=== PATIENT | female | born 1980 | race Asian ===

== ENCOUNTER 2024-05-04 08:07 | Inpatient (IN) ==
[2024-05-04] MEDS ORDERED: ACETAMINOPHEN 500 MG TAB PO PRN (08:20)
[2024-05-04] MEDS ORDERED: LIDOCAINE 1% LOCAL 20 ML VIAL INFIL PRN (08:20)
[2024-05-04] MEDS ORDERED: OXYTOCIN 30 UNITS/NSS 30 UNITS/500 ML BAG IV PRN ×2 (08:20→14:38)
[2024-05-04] MEDS ORDERED: CALCIUM CARBONATE 500 MG CHEWABLE TAB PO PRN (08:20)
[2024-05-04 08:57] LABS: Hematocrit (blood only) 33.2 % (37.0-47.0); Hemoglobin 11.6 g/dl (12.0-16.0); Mean Corpuscular Hemoglobin 29.3 pg (25.0-34.0); Mean Corpuscular Hgb Conc 34.9 g/dL (32.0-36.0); Mean Corpuscular Volume 83.8 fL (80.0-100.0); Mean Platelet Volume 10.6 fL (9.4-12.4); Platelet Count 284 K/uL (130-400); RDW Coefficient of Variation 13.1 % (11.5-14.5); RDW Standard Deviation 39.8 fL (36.4-46.3); Red Blood Count 3.96 M/uL (4.20-5.40); White Blood Count 8.56 K/ul (4.8-10.8)
--- NOTE | 2024-05-04 09:14 | History & Physical Report ---
Date of Service May 04, 2024 Assessment & Plan (1) Supervision of elderly multigravida: (2) Encounter for induction of labor: Plan Ruth is a 43-year-old G4, P2 currently at 40 weeks 0 days gestational age presents for induction of labor secondary to AMA greater than age 40.\ 1. Fetus: Category 1 tracing 2. Labor: Cervix very favorable. Will start oxytocin per regular protocol plan for rupture of membranes when appropriate. 3. GBS negative 4. Vitals within normal limits 5. Diet-controlled gestational diabetes: Plan for initial glucose and if normal no additional follow-up needed Admission and Anticipated Discharge Date Admission Date: May 04, 2024 History of Present Illness Primary Care Provider: NO PCP Ruth is a 43-year-old G4, P2 presents for induction of labor secondary to AMA over age 40. Denying painful contractions, leakage of fluid or vaginal bleeding. Normal movement noted. complications: AMA>40@del *Anatomy Scan @ 20wks * Echo 22-24wks 02/23/[address] [facility] [place]---normal *Growth scan @32wks *Weekly NST's @36 wks *Twice weekly NST @38wks *Weekly KRISTINE's @38wks *Deliver by 40 wks-----IOL 05/04 GDM in prior *Begin monthly Growth US's @24wks Will need custodial worker for some visits. Head Circumferance < 2% on F/U Anatomy - Resolved at 32 weeks *MFM conult (02/17/[address] [facility] [place]) *head circumference only -1 sd below normal so no microcephaly *MFM recs continued monthly growth US and weekly NSTs/DVP at 32 weeks -HC 12% at 34wks Allergies Allergy/AdvReac Type Severity Reaction Status Date / Time No Known Allergies Allergy Verified 05/03/24 11:02 Home Medications Medication Instructions Recorded Confirmed Type vit no.95-ferrous 1 tab PO DAILY 02/23/23 05/03/24 History fumarate 28 mg-folic acid 800 mcg tablet () acetone (urine) test (Ketone Urine #50 ea 10/15/23 05/03/24 Rx Test strips) blood sugar diagnostic (OneTouch #150 ea 10/15/23 05/03/24 Rx Verio test strips) blood-glucose meter (OneTouch #1 ea 10/15/23 05/03/24 Rx Verio Reflect Meter) lancets 33 gauge (OneTouch Delica #150 ea 10/15/23 05/03/24 Rx Plus Lancet) Patient History Medical History (Updated 05/04/24 @ 09:14 by Shaka Guzman MD) SAB (spontaneous ) Surgical History (Updated 02/25/23 @ 11:52 by Cindy Maher MD, FACOG) History of dental surgery Family History (Updated 10/01/23 @ 10:42 by Karen Dean) Other Diabetes Denies family history of Ovarian cancer Prostate cancer Breast cancer Colorectal cancer Social History (Updated 10/01/23 @ 10:43 by Karen Dean) Smoking Status: Never smoker Do You Dip or Chew Tobacco: No; Hx Alcohol Use: No Hx Substance Use: No Preferred Language: Bahamian marital status: marital status details: Rayray (42) [phone] Current Living Situation: Spouse Current Living Situation Comment: Lives with spouse, 2 children, 2 guinnea pigs current occupational status: unemployed Feels Safe at Home: Yes Physical Exam Genitourinary: OB Exam Abdomen: + vertex (Sutures clearly palpated) Manual OB Exam: + cervical dilation 4 cm, + cervical effacement 50% and + station -2 OB Exam Monitor Tracing: + external FHT monitor used, + external uterine monitor used, + category I and + normal FHT variability; no early decelerations present, no late decelerations present and no variable decelerations Results & Data Vital Signs (Past 12 Hours) Vital Signs Pulse BP 05/04/24 08:22 78 111/76 Coding Level of Care Code None Diagnoses Encounter for supervision of multigravida of advanced maternal age in third trimester O09.523 Trimester: third trimester Encounter for induction of labor Z34.90 (1) Supervision of elderly multigravida Trimester: third trimester Qualified Code(s): O09.523 - Supervision of elderly multigravida, third trimester
[2024-05-04] MEDS: LACTATED RINGER'S 1,000 ML IV SCH (09:57)
[2024-05-04] MEDS: OXYTOCIN 30 UNITS/NSS 30 UNITS/500 ML BAG IV PRN (09:57)
--- NOTE | 2024-05-04 12:32 | Labor Progress Brief Note ---
Date of Service May 04, 2024 Subjective Reason For Note: Routine Evaluation Assessment & Plan (1) Supervision of elderly multigravida: Trimester: third trimester Qualified Code(s): O09.523 - Supervision of elderly multigravida, third trimester (2) Encounter for induction of labor: Plan Ruth is a 43-year-old G4, P2 currently at 40 weeks 0 days gestational age presents for induction of labor secondary to AMA greater than age 40.\ 1. Fetus: Category 1 tracing 2. Labor: Cervix very favorable. Continue oxytocin per regular protocol. Me mbranes ruptured for clear. 3. GBS negative 4. Vitals within normal limits 5. Diet-controlled gestational diabetes: Plan for initial glucose and if normal no additional follow-up needed Admission and Anticipated Discharge Date Admission Date: May 04, 2024 Physical Exam Genitourinary: OB Exam Abdomen: + vertex (Sutures clearly palpated) Manual OB Exam: + cervical dilation 4 cm, + cervical effacement 50%, + station -2 and + amniotic fluid clear OB Exam Monitor Tracing: + external FHT monitor used, + external uterine monitor used, + category I and + normal FHT variability; no early decelerations present, no late decelerations present and no variable decelerations Results & Data Vital Signs (Past 12 Hours) Vital Signs Temp Pulse Resp BP 05/04/24 12:23 76 05/04/24 12:23 113/75 05/04/24 11:29 70 05/04/24 11:29 114/77 05/04/24 10:01 71 05/04/24 10:01 108/76 05/04/24 08:52 36.9 C 20 05/04/24 08:22 78 111/76 Coding Level of Care Code None Diagnoses Encounter for supervision of multigravida of advanced maternal age in third trimester O09.523 Trimester: third trimester Encounter for induction of labor Z34.90
--- NOTE | 2024-05-04 13:50 | Anesthesiology Consultation ---
Date of Service May 04, 2024 Assessment & Plan Chart Review Chart Review: Patient NOT seen in Pre Admission Testing and Acceptable Risk for Labor Epidural Consults Requested none ASA ASA2 Proposed Anesthesia Anesthesia Type: Labor Epidural Risk / Benefits Reviewed With: PT / POA / Parent / Guardian, Accepts Plan and Informed Consent Obtained History Height/Weight Height: 5 ft 5.35 in Weight: 75.75 kg Allergies Allergy/AdvReac Type Severity Reaction Status Date / Time No Known Allergies Allergy Verified 05/04/24 09:17 Medications Home Medications Medication Instructions Recorded Confirmed Last Taken vit no.95-ferrous 1 tab PO DAILY 02/23/23 05/04/24 04/19/24 fumarate 28 mg-folic acid 800 mcg tablet () acetone (urine) test (Ketone Urine #50 ea 10/15/23 05/03/24 Unknown Test strips) blood sugar diagnostic (OneTouch #150 ea 10/15/23 05/03/24 Unknown Verio test strips) blood-glucose meter (OneTouch #1 ea 10/15/23 05/03/24 Unknown Verio Reflect Meter) lancets 33 gauge (OneTouch Delica #150 ea 10/15/23 05/03/24 Unknown Plus Lancet) Active Medications Generic Name Dose Route Start Last Admin Trade Name Freq PRN Reason Stop Dose Admin Oxytocin 30 units in 500 mls @ 6 mls/hr 05/04/24 08:23 05/04/24 11:00 Pitocin 30 Units/Nss IV 05/06/24 08:22 0.36 units/hr .Q24H PRN 6 mls/hr Labor Induction/Augmentation Titration Protocol 0.36 UNITS/HR Lactated Ringer's 1,000 mls @ 50 mls/hr 05/04/24 10:00 05/04/24 13:25 Lr IV 05/05/24 09:59 999 mls/hr .Q20H SONAM Infusion NPO Date Last Intake of Fluids: 05/04/24 Time Last Intake of Fluids: 09:00 Date Last Intake of Solids: 05/04/24 Time Last Intake of Solids: 07:30 Past Medical History Medical History SAB (spontaneous ) Exercise / Class Metabolic Activity 1 > 8 Run/Swim/Ski/Tennis Past Family History Family History Other Diabetes Denies family history of Ovarian cancer Prostate cancer Breast cancer Colorectal cancer Past Surgical History Surgical History History of dental surgery Past Anesthesia History No Hx of Anesthesia Complications and No Family Hx of Anesthesia Complications History of PONV No Hx of PONV and No Hx of Motion Sickness Social History Smoking Status: Never smoker Do You Dip or Chew Tobacco: No Hx Alcohol Use: No Hx Substance Use: No Review of Systems ROS Unobtainable: All systems reviewed & are unremarkable except as noted in HPI & below Physical Exam Vital Signs Last Vital Signs Temp 36.9 C 05/04/24 08:52 Pulse 75 05/04/24 13:41 Resp 20 05/04/24 08:52 BP 124/84 05/04/24 13:30 Pulse Ox 99 05/04/24 13:41 ENMT Mouth: no TMJ abnormality Thyromental Distance: > or= 3.5 Finger Breadths Mallampati Class: II Neck normal visual inspection and trachea midline; neck extension not limited Respiratory normal respiratory effort Auscultation: lungs clear to auscultation bilaterally Cardiovascular Rate/Rhythm: regular rate and regular rhythm Heart Sounds: no murmur Musculoskeletal Spine: normal cervical ROM Extremities: full ROM of extremities Neurologic moves all extremities Psychiatric Orientation: alert and oriented x 3 Testing Laboratory Results 05/04/24 08:32
[2024-05-04] MEDS: fentANYL 2 MCG/ML BUPIVacaine 0.125%-NSS 100ML BAG ONE (14:06)
[2024-05-04] MEDS ORDERED: ROPIVACAINE 0.5% PF 5 MG/ML 20 ML VIAL EPI PRN (14:08)
[2024-05-04] MEDS ORDERED: LIDOCAINE 2% MPF LOCAL 5 ML VIAL EPI PRN (14:08)
[2024-05-04] MEDS ORDERED: ePHEDrine sulfate 50 MG/ML AMP IV PRN (14:08)
[2024-05-04] MEDS ORDERED: BUPIVACAINE 0.25% PF 30 ML VIAL EPI PRN (14:08)
[2024-05-04] MEDS ORDERED: SODIUM CHLORIDE 0.9% PF INJ 10 ML VIAL EPI PRN (14:08)
[2024-05-04] MEDS ORDERED: NALOXONE HCL 0.4 MG/1 ML VIAL/CARP IV PRN (14:08)
[2024-05-04] MEDS ORDERED: fentaNYL citrate PF 100 MCG/2 ML VIAL EPI PRN (14:08)
[2024-05-04] MEDS ORDERED: NALBUPHINE HCL INJ 10 MG/ML AMP IV PRN (14:08)
[2024-05-04] MEDS ORDERED: diphenhydrAMINE 50 MG/ML VIAL IV PRN (14:08)
[2024-05-04] MEDS ORDERED: NALOXONE HCL 1 MG in SODIUM CHLORIDE 0.9% 1,000 ML IV PRN (14:08)
[2024-05-04] MEDS ORDERED: fentANYL 2 MCG/ML BUPIVacaine 0.125%-NSS 100ML BAG EPI PRN (14:08)
[2024-05-04] MEDS: BUPIVACAINE 0.25% PF 30 ML VIAL ONE (14:11)
[2024-05-04] MEDS: fentaNYL citrate PF 100 MCG/2 ML VIAL ONE (14:11)
[2024-05-04] MEDS: LIDOCAINE 2%/EPINEPHRINE 1:200,000 20 ML PF ONE (14:11)
[2024-05-04] MEDS ORDERED: ACETAMINOPHEN 325 MG TAB PO PRN (14:38)
[2024-05-04] MEDS ORDERED: BENZOCAINE 20% SPRY 85 APPLN/85 GM CAN EXT PRN (14:38)
[2024-05-04] MEDS ORDERED: bisacodyL 10 MG SUPP PR PRN (14:38)
[2024-05-04] MEDS ORDERED: HYDROCORTISONE ACETATE 25 MG SUPP PR PRN (14:38)
--- NOTE | 2024-05-04 14:59 | Anesthesia Procedure Note ---
Date of Service May 04, 2024 Anesthesia Post Epidural Note Vital Signs Vital Signs: Temp Pulse Resp BP Pulse Ox 36.9 C 64 20 113/65 98 05/04/24 08:52 05/04/24 14:51 05/04/24 14:50 05/04/24 14:51 05/04/24 14:31 Notes Mental Status: alert / awake / arousable and participated in evaluation Nausea / Vomiting: adequately controlled Pain: adequately controlled Airway Patency, RR, SpO2: stable & adequate BP & HR: stable & adequate Hydration State: stable & adequate Neuraxial Anesthesia: was administered and sensory block is resolving Anesthetic Complications: no major complications apparent Epidural: Removed without complications and With tip intact
[2024-05-04] MEDS: SODIUM CHLORIDE 0.9% PF INJ 10 ML VIAL ONE (15:05)
[2024-05-04] MEDS: ePHEDrine sulfate 50 MG/ML AMP ONE (15:05)
[2024-05-04] MEDS: fentaNYL citrate PF 100 MCG/2 ML VIAL EPI STA (15:09)
[2024-05-04] MEDS: DIPHTHER/TETAN/PERTUS Vaccine (Tdap, Adol/Adult) 0.5mL IM ONE (15:09)
[2024-05-04] MEDS: LIDOCAINE 2%/EPINEPHRINE 1:200,000 20 ML PF EPI STA (15:09)
[2024-05-04] MEDS: SODIUM CHLORIDE 0.9% PF INJ 10 ML VIAL EPI STA (15:09)
[2024-05-04] MEDS: BUPIVACAINE 0.25% PF 30 ML VIAL EPI STA (15:09)
--- NOTE | 2024-05-04 16:43 | Delivery Summary ---
Vaginal Delivery Summary Date of Service May 04, 2024 Vaginal Delivery Summary and 2nd Degree LAC Progressed to 10 cm dilated 100% effaced +2 station pushed over intact perineum with epidural anesthesia and delivered a viable female with weight and Apgars pending. Head delivered without difficulty quickly followed by shoulders and remainder of body. was noted to be vigorous soon after delivery and a 1 minute delayed cord clamping was initiated. Cord is then double clamped and cut and remained on maternal abdomen. Cord blood obtained. Attention turned to deliver the placenta delivered intact with three-vessel cord gentle cord traction. Inspection of perineum vagina cervix there is noted a second- degree perineal laceration which was repaired and 3-0 Vicryl with traditional crown stitch. Needle sponge and instrument counts are correct at the completion of the case. Both mother and stable in the immediate post delivery timeframe. No complications noted and blood loss per QBL in chart [facility] Vaginal Delivery Charge Delivery Type Details: and 2nd Degree LAC
[2024-05-04] MEDS: DOCUSATE SODIUM 100 MG CAP PO SCH (20:43)
--- NOTE | 2024-05-05 06:38 | Obstetrical Progress Note ---
Date of Service <Elías LadyRenan Singh DO - Last Filed: 05/05/24 07:48> May 05, 2024 Assessment & Plan <Elías NarayananRenan Singh DO - Last Filed: 05/05/24 07:48> (1) state: Patient is a 43yo day 1 s/p complicated by 2nd degree perineal laceration. Feeling well this AM, VSS Continue care Ambulation and as tolerated Pain control Hgb: 11.6 on 05/04, asymptomatic Home: tomorrow Follow up with Dr. Guzman in 6wks. (2) Perineal laceration during delivery: Second-degree perineal laceration which was repaired and 3-0 Vicryl with traditional crown stitch. Monitor for signs of infection Pain control as needed Perineal laceration degree: second degree Qualified Code(s): O70.1 - Second degree perineal laceration during delivery <Shaka Guzman MD - Last Filed: 05/05/24 08:12> (1) state: (2) Perineal laceration during delivery: Subjective <Elías LadyRenan Singh DO - Last Filed: 05/05/24 07:48> Patient is a 43yo day 1 s/p complicated by 2nd degree perineal laceration. Ambulation: yes Voiding: urinated, had 1 BM Passing gas: yes Diet tolerance: yes, OB reg Lochia: decreasing Feeding type: breast, going well Current pain: mild lower belly pain Resting comfortably this AM in NAD. Denies fever, chills, headache, vision changes, chest pain, SOB, abdominal pain, LE pain/swelling, or LE numbness/tingling. Review of Systems as above Physical Exam <Elías Singh DO - Last Filed: 05/05/24 07:48> General: A&Ox4, resting comfortably in NAD, nontoxic in appearance Skin: warm, dry, intact HEENT: NC/AT, anicteric sclerae, conjunctiva w/o injection, moist mucous membranes Heart: +s1/s2, RRR, no m/r/g Lungs: equal air entry b/l, clear to auscultation b/l, no wheeze, rales, or rhonchi Abd: +BS, abdomen soft, uterine fundus moderately firm at level of umbilicus Ext: no significant swelling, no erythema or tenderness to palpation; no cyanosi s or clubbing Neuro: speech intact, no facial droop, moves all extremities on command Results & Data <Elías Singh DO - Last Filed: 05/05/24 07:48> Vital Signs (Past 12 Hours) Vital Signs Temp Pulse Resp BP O2 Del Method 05/05/24 04:25 36.7 C 75 18 117/75 Room Air 05/05/24 00:00 37.3 C 65 18 118/74 Room Air 05/04/24 20:35 37.3 C 67 18 115/72 Room Air Laboratory Results 05/04/24 Range/Units 08:32 WBC 8.56 (4.8-10.8) K/ul RBC 3.96 L (4.20-5.40) M/uL Hgb 11.6 L (12.0-16.0) g/dl Hct 33.2 L (37.0-47.0) % MCV 83.8 (80.0-100.0) fL MCH 29.3 (25.0-34.0) pg MCHC 34.9 (32.0-36.0) g/dL RDW Std Deviation 39.8 (36.4-46.3) fL RDW Coeff of Emilie 13.1 (11.5-14.5) % Plt Count 284 (130-400) K/uL MPV 10.6 (9.4-12.4) fL Treponema pallidum Ab Negative (Negative) Supervising Physician <Shaka Guzman MD - Last Filed: 05/05/24 08:12> Co-Signing Physician Notes Patient seen with resident and agree with the above findings and plan. Routine care. Resident Activity Tracking <Elías Singh DO - Last Filed: 05/05/24 07:48> Resident Involvement: Resident Care Provided Care Provided: OB Delivery
[2024-05-05] MEDS: PRENATAL VITAMIN 1 TAB PO SCH (08:58)
[2024-05-05] MEDS: FERROUS SULFATE 325 MG TAB PO SCH (08:58)
[2024-05-05] MEDS: IBUPROFEN 600 MG TAB PO PRN (08:58)
[2024-05-05 19:09] VITALS: RESP 16
[2024-05-05] MEDS: bisacodyL 5 MG TABEC PO SCH (20:00)
--- NOTE | 2024-05-06 06:05 | Obstetrical Progress Note ---
Date of Service <Elías NarayananRenan Samantha, - Last Filed: 05/06/24 07:14> May 06, 2024 Assessment & Plan <Elías Malavealana - Last Filed: 05/06/24 07:14> (1) state: Patient is a 43yo day 2 s/p complicated by 2nd degree perineal laceration. Feeling well this AM, VSS Continue care Ambulation and as tolerated Pain control as needed Hgb: 11.6 on 05/04, asymptomatic Home: today Would like a belt/binder to take home. Follow up with Dr. Guzman in 6wks. (2) Perineal laceration during delivery: Second-degree perineal laceration which was repaired and 3-0 Vicryl with tradi tional crown stitch. Monitor for signs of infection Pain control as needed Perineal laceration degree: second degree Qualified Code(s): O70.1 - Second degree perineal laceration during delivery <Jessika Hollis MD - Last Filed: 05/06/24 07:41> (1) state: (2) Perineal laceration during delivery: Subjective <Elías Malavealana - Last Filed: 05/06/24 07:14> Patient is a 43yo day 2 s/p complicated by 2nd degree perineal laceration. Ambulation: yes Voiding: urinated, no BM yet Passing gas: yes Diet tolerance: yes, OB reg Lochia: decreasing Feeding type: breast, going well Current pain: minimal Resting comfortably this AM in NAD. Denies fever, chills, headache, vision changes, chest pain, SOB, abdominal pain, LE pain/swelling, or LE numbness/tingling. Physical Exam <Elías NarayananRenan Singh DO - Last Filed: 05/06/24 07:14> General: A&Ox4, resting comfortably in NAD, nontoxic in appearance Skin: warm, dry, intact HEENT: NC/AT, anicteric sclerae, conjunctiva w/o injection, moist mucous membranes Heart: +s1/s2, RRR, no m/r/g Lungs: equal air entry b/l, clear to auscultation b/l, no wheeze, rales, or rhonchi Abd: +BS, abdomen soft, uterine fundus firm at level of umbilicus Ext: no significant swelling, no erythema or tenderness to palpation; no cyanosis or clubbing Neuro: speech intact, no facial droop, moves all extremities on command Results & Data <Elías Singh DO - Last Filed: 05/06/24 07:14> Vital Signs (Past 12 Hours) Vital Signs Temp Pulse Resp BP Pulse Ox O2 Del Method 05/05/24 23:17 37.1 C 65 16 122/76 96 Room Air 05/05/24 19:08 36.8 C 83 16 117/76 94 Room Air Supervising Physician <Jessika Hollis MD - Last Filed: 05/06/24 07:41> Co-Signing Physician Notes Resident Physician Supervision Note: I interviewed and examined the patient. Discussed with Dr. Singh and agree with findings and plan as documented in the note. Any exceptions or clarifications are listed here: [ ] Documented By: Jessika Hollis MD, FACOG Resident Activity Tracking <Elías Singh DO - Last Filed: 05/06/24 07:14> Resident Involvement: Resident Care Provided Care Provided: OB Delivery
[2024-05-06 08:06] VITALS: BP 124/79; PULSE 61; TEMP 97.9; O2SAT 97
== END 2024-05-06 14:45 | disposition home or self-care (01) | DRG 807 ==
LOC: 4S1 08:07 → 4E2 17:32
DX: O24.420 Gestational diabetes mellitus in childbirth, diet controlled; Z3A.40 40 weeks gestation of pregnancy; O48.0 Post-term pregnancy; O70.1 Second degree perineal laceration during delivery; Z37.0 Single live birth